=== PATIENT | male | born 1995 | race Caucasian/White ===

== ENCOUNTER 2019-05-08 01:17 | Observation (INO) | payer OTHER ==
[~2019-05-08] VITALS: Ht 170.2 cm; Wt 77.1 kg
[~2019-05-08 01:17] MED LIST: CODACEE120 PO
[2019-05-08 01:45] LABS: BASOPHILS ABSOLUTE AUTO 0.02 K/mm3 (0.00-0.23); BASOPHILS PERCENT AUTO 0 % (0-2); EOSINOPHILS ABSOLUTE AUTO 0.09 K/mm3 (0.00-0.68); EOSINOPHILS PERCENT AUTO 1 % (0-6); Hemoglobin 15.8 g/dL (13.5-17.5); IMMATURE GRAN ABSOLUTE AUTO 0.02 K/mm3 (0.00-0.10); IMMATURE GRAN PERCENT AUTO 0 % (0-1); LYMPHOCYTES ABSOLUTE AUTO 0.63 K/mm3 (0.84-5.20); LYMPHOCYTES PERCENT AUTO 6 % (21-46); MONOCYTES ABSOLUTE AUTO 0.76 K/mm3 (0.16-1.47); MONOCYTES PERCENT AUTO 8 % (4-13); Mean Corpuscular HGB 30.8 pg (26.0-34.0); Mean Corpuscular HGB Conc 34.3 g/dL (31.5-36.5); Mean Corpuscular Volume 90 fL (80-100); Mean Platelet Volume 9.4 fL (9.1-12.4); NEUTROPHILS ABSOLUTE AUTO 8.42 K/mm3 (1.96-9.15); NEUTROPHILS PERCENT AUTO 85 % (41-73); Platelet Count 271 K/mm3 (150-400); RDW Coefficient Variation 12.4 % (11.7-14.2); RDW Standard Deviation 40.8 fL (35.1-46.3); Red Blood Cell Count 5.13 M/mm3 (4.30-5.90); White Blood Cell Count 9.94 K/mm3 (4.00-11.30)
[2019-05-08 02:03] LABS: Alanine Aminotransfer (ALT/SGP 50 U/L (12-78); Albumin, Blood 4.6 g/dL (3.4-5.0); Albumin/Globulin Ratio 1.2 (0.8-1.8); Alk Phos 68 U/L (50-136); Anion Gap 5 mmol/L (6-16); Aspartate Aminotrans (AST/SGOT 27 U/L (12-37); Bilirubin, Total 0.6 mg/dL (0.1-1.0); Blood Urea Nitrogen 16 mg/dL (8-24); CO2, Blood 29 mmol/L (21-32); Calcium, Blood 8.8 mg/dL (8.5-10.1); Chloride, Blood 106 mmol/L (98-108); Creatinine, Blood 1.14 mg/dL (0.60-1.20); Globulin, Blood 3.7 g/dL (2.2-4.0); Glomerular Filtration Rate >60 (60-); Glucose, Blood 106 mg/dL (70-99); Potassium, Blood 3.7 mmol/L (3.5-5.5); Sodium, Blood 140 mmol/L (136-145); Total Protein, Blood 8.3 g/dL (6.4-8.2)
[2019-05-08 03:13] LABS: Source, Urine Clean Catch
[2019-05-08 03:15] LABS: Bilirubin, Urine Neg (Neg); Blood, Urine Neg (Neg); Glucose Qualitative, Urine Neg (Neg); Ketones, Urine 1+ (Neg); Leukocyte Esterase, Urine Neg (Neg); Nitrite, Urine Neg (Neg); Protein, Urine Neg (Neg); Urobilinogen, Urine NORM (Normal)
[2019-05-08 03:16] LABS: Appearance, Urine Clear (Clear); Color, Urine Yellow (P-Yellow)
--- NOTE | 2019-05-08 08:50 | NUR ---
Physician notified Dr. Desai notified of pt c/o nausea and no orders for nausea. Orders received (see EMAR).
[2019-05-08 09:36] LABS: BASOPHILS ABSOLUTE AUTO 0.01 K/mm3 (0.00-0.23); BASOPHILS PERCENT AUTO 0 % (0-2); EOSINOPHILS ABSOLUTE AUTO 0.01 K/mm3 (0.00-0.68); EOSINOPHILS PERCENT AUTO 0 % (0-6); Hematocrit 40.9 % (37.0-53.0); Hemoglobin 13.9 g/dL (13.5-17.5); IMMATURE GRAN ABSOLUTE AUTO 0.02 K/mm3 (0.00-0.10); IMMATURE GRAN PERCENT AUTO 0 % (0-1); LYMPHOCYTES ABSOLUTE AUTO 0.28 K/mm3 (0.84-5.20); LYMPHOCYTES PERCENT AUTO 4 % (21-46); MONOCYTES PERCENT AUTO 8 % (4-13); Mean Corpuscular HGB 30.8 pg (26.0-34.0); Mean Corpuscular Volume 91 fL (80-100); Mean Platelet Volume 9.4 fL (9.1-12.4); NEUTROPHILS ABSOLUTE AUTO 6.53 K/mm3 (1.96-9.15); NEUTROPHILS PERCENT AUTO 88 % (41-73); Platelet Count 220 K/mm3 (150-400); RDW Coefficient Variation 12.7 % (11.7-14.2); Red Blood Cell Count 4.52 M/mm3 (4.30-5.90); White Blood Cell Count 7.45 K/mm3 (4.00-11.30)
[2019-05-08 16:16] LABS: Campylobacter Sp Not Detected (NOT DETECT)
[2019-05-08 16:17] LABS: Adenovirus F 40/41 Not Detected (NOT DETECT); Astrovirus Not Detected (NOT DETECT); Cryptosporidium Not Detected (NOT DETECT); Cyclospora Cayetanensis Not Detected (NOT DETECT); E. Coli O157 Not Detected (NOT DETECT); Entamoeba Histolytica Not Detected (NOT DETECT); Enteroaggregative E. coli-EAEC Not Detected (NOT DETECT); Enteropathogenic E. coli-EPEC Not Detected (NOT DETECT); Enterotoxigenic E. coli-ETEC Not Detected (NOT DETECT); Giardia Lamblia Not Detected (NOT DETECT); Norovirus GI/GII Detected (NOT DETECT); Plesiomonas Shigelloides Not Detected (NOT DETECT); Rotavirus A Not Detected (NOT DETECT); Salmonella Sp Not Detected (NOT DETECT); Sapovirus Not Detected (NOT DETECT); Shiga Toxin-prod E. coli-STEC Not Detected (NOT DETECT); Shigella/Enteroin E. coli-EIEC Not Detected (NOT DETECT); Vibrio Cholerae Not Detected (NOT DETECT); Vibrio Sp Not Detected (NOT DETECT); Yersinia Enterocolitica Not Detected (NOT DETECT)
--- NOTE | 2019-05-08 17:27 | NUR ---
Physician notified Dr. Decker notified regarding GI panel results. No new orders.
[2019-05-08 17:50] LABS: Adenovirus Not Detected (NOT DETECT); Bordetella pertussis Not Detected (NOT DETECT); Chlamydophila pneumoniae Not Detected (NOT DETECT); Coronavirus 229E Not Detected (NOT DETECT); Coronavirus HKU1 Not Detected (NOT DETECT); Coronavirus NL63 Not Detected (NOT DETECT); Coronavirus OC43 Not Detected (NOT DETECT); Human Metapneumovirus Not Detected (NOT DETECT); Human Rhinovirus/Enterovirus Not Detected (NOT DETECT); Influenza A Not Detected (NOT DETECT); Influenza A/2009-H1 Not Detected (NOT DETECT); Influenza A/H1 Not Detected (NOT DETECT); Influenza A/H3 Not Detected (NOT DETECT); Influenza B Not Detected (NOT DETECT); Mycoplasma pneumoniae Not Detected (NOT DETECT); Parainfluenza Virus 1 Not Detected (NOT DETECT); Parainfluenza Virus 2 Not Detected (NOT DETECT); Parainfluenza Virus 3 Not Detected (NOT DETECT); Parainfluenza Virus 4 Not Detected (NOT DETECT); Respiratory Syncytial Virus Not Detected (NOT DETECT)
--- NOTE | 2019-05-08 17:50 | NUR ---
Received orders for Immodium (see EMAR) from Dr. Decker for diarrhea.
--- NOTE | 2019-05-08 18:24 | NUR ---
Shift Summary A/Ox4, independent, cooperative with care. GI panel and Resp. panel sent to lab, results received. Pt currently on enteric precautions for noro virus and c-diff. Pain is more manageable now compared to this morning is no longer guarding abdomen and up in room socializing with freinds and family. Medicated for pain x4 and nausea x2 with good results. Advanced diet to Full liquid, patient did not have an appetite. No other concerns.
[2019-05-09 04:48] LABS: BASOPHILS ABSOLUTE AUTO 0.01 K/mm3 (0.00-0.23); BASOPHILS PERCENT AUTO 0 % (0-2); EOSINOPHILS ABSOLUTE AUTO 0.13 K/mm3 (0.00-0.68); EOSINOPHILS PERCENT AUTO 3 % (0-6); Hematocrit 38.8 % (37.0-53.0); IMMATURE GRAN ABSOLUTE AUTO 0.01 K/mm3 (0.00-0.10); IMMATURE GRAN PERCENT AUTO 0 % (0-1); LYMPHOCYTES ABSOLUTE AUTO 1.44 K/mm3 (0.84-5.20); LYMPHOCYTES PERCENT AUTO 27 % (21-46); MONOCYTES ABSOLUTE AUTO 0.67 K/mm3 (0.16-1.47); MONOCYTES PERCENT AUTO 13 % (4-13); Mean Corpuscular HGB 30.4 pg (26.0-34.0); Mean Corpuscular HGB Conc 33.5 g/dL (31.5-36.5); Mean Corpuscular Volume 91 fL (80-100); Mean Platelet Volume 9.5 fL (9.1-12.4); NEUTROPHILS ABSOLUTE AUTO 3.04 K/mm3 (1.96-9.15); NEUTROPHILS PERCENT AUTO 57 % (41-73); Platelet Count 200 K/mm3 (150-400); RDW Coefficient Variation 12.7 % (11.7-14.2); RDW Standard Deviation 41.8 fL (35.1-46.3); Red Blood Cell Count 4.27 M/mm3 (4.30-5.90)
[2019-05-09 05:20] LABS: Alanine Aminotransfer (ALT/SGP 30 U/L (12-78); Albumin, Blood 3.1 g/dL (3.4-5.0); Albumin/Globulin Ratio 1.1 (0.8-1.8); Alk Phos 45 U/L (50-136); Anion Gap 4 mmol/L (6-16); Aspartate Aminotrans (AST/SGOT 16 U/L (12-37); Bilirubin, Total 0.3 mg/dL (0.1-1.0); Blood Urea Nitrogen 9 mg/dL (8-24); CO2, Blood 27 mmol/L (21-32); Calcium, Blood 7.5 mg/dL (8.5-10.1); Chloride, Blood 109 mmol/L (98-108); Creatinine, Blood 1.12 mg/dL (0.60-1.20); Globulin, Blood 2.9 g/dL (2.2-4.0); Glomerular Filtration Rate >60 (60-); Glucose, Blood 103 mg/dL (70-99); Potassium, Blood 3.4 mmol/L (3.5-5.5); Sodium, Blood 140 mmol/L (136-145)
--- NOTE | 2019-05-09 06:35 | NUR ---
SHIFT SUMMARY PT IS A 23 Y/O MALE, ADMITTED FOR ABD PAIN, POSITIVE FOR C-DIFF AND NORO. HE IS A&O X 4, AND INDEPENDENT IN THE ROOM. PT SLEPT WELL DURING THE NIGHT, AND DENIED ANY COMPLAINTS OF ABD PAIN OR N/V. VITAL SIGNS STABLE. PT RECEIVED NS @ 100 ML/HR THROUGH THE NIGHT. NO OTHER ACUTE CHANGES IN PT CONDITION NOTED. WILL CONTINUE TO MONITOR AND TREAT PER EMAR UNTIL HAND OFF TO DAY SHIFT RN.
--- NOTE | 2019-05-09 07:21 | NUR ---
pt reports THE PT REPORTS THAT HE IS FEELING MUCH BETTER THIS AM NO ABD PAIN NO N/V, WOULD LIKE TO ADVANCE TO A REGULAR DIET
[2019-05-09] MEDS ORDERED: Anti-Diarrheal2 MG PO (11:41)
[2019-05-09] MEDS ORDERED: POTCHL20ER PO (11:42)
--- NOTE | 2019-05-09 12:23 | NUR ---
PT DISCHARGED THE PT VERBALIZED UNDERSTANDING OF THE DC INSTRUCTIONS, PRESCRIPTIONS WERE FAXED TO [facility] REQUESTED, THE PT DENIED ANY N/V, OR ABD PAIN AT THE TIME OF DC, THE PT DECLINED WHEELCHAIR, THE PT APPEARED TO BE BREATHING EASILY ON RA, ACCOMPANIED BY FAMILY, KCL GIVEN BEFORE DC
== END 2019-05-09 12:07 | disposition home or self-care (01) ==
LOC: ER 01:17 → MEDS 01:18
PROVIDERS: Emergency Medicine; Internal Medicine; ADMIT Hospitalist
DX: A08.39 Other viral enteritis (principal); E86.0 Dehydration; E87.6 Hypokalemia; Z88.1 Allergy status to other antibiotic agents
CPT/HCPCS: 0097U; 0099U; 36415; 74177; 80053; 81003; 83605; 83690; 84145; 85025; 87324; 96361; 96365; 96366; 96367; 96374-59; 96375; 96375-59; 96376; 99285-25; G0378; J0696; J1170; J1885; J2405; J3010; J7030; Q9967

== ENCOUNTER 2025-04-13 08:58 | Day surgery (SDC) | payer BC ==
[~2025-04-13] VITALS: Ht 170.2 cm; Wt 89.7 kg
[~2025-04-13 08:58] MED LIST changes: +Anti-Diarrheal2 MG PO; +Lidocaine HCl 2% 10 ML SDA ONE; +POTCHL20ER PO
[2025-04-13] MEDS ORDERED: CeFAZolin Sodium 2,000 MG VIAL ONE (09:06)
[2025-04-13] MEDS ORDERED: FentaNYL Citrate 50 MCG/ML 2 ML Injection ONE (10:48)
--- NOTE | 2025-04-13 10:48 | NUR ---
04/13/25 [facility] [address]: DISCUSSED WITH CHAS VELAZCO THAT PATIENT WAS CHEWING GUM UPON ARRIVAL TO PRE-OP TODAY. PER JUAN A, OK TO PROCEED, NO NEW ORDERS.
[2025-04-13] MEDS ORDERED: Midazolam HCl 1MG / ML 2ML Vial ONE (10:49)
[2025-04-13] MEDS ORDERED: Dexamethasone Sod Phos 10 MG/ML 1ML VIAL ONE (10:54)
[2025-04-13] MEDS ORDERED: Ondansetron HCl 2 MG / ML 2ML Vial ONE (10:54)
[2025-04-13] MEDS ORDERED: Ketorolac Tromethamine 30mg Vial ONE (10:55)
[2025-04-13] MEDS ORDERED: Metoclopramide HCl 5MG / ML 2ML Vial ONE (12:05)
[2025-04-13 12:23] VITALS: BP 108/63
[2025-04-13] MEDS ORDERED: HYDROcodone 5-APAP 325 TAB ONE (12:50)
--- NOTE | 2025-04-13 13:14 | NUR ---
04/13/25 1314 Damien Bagley PT DOING WELL. PLEASE SEE DISCHARGE ASSESSMENT FOR DISCHARGE NOTE
== END 2025-04-13 13:04 | disposition home or self-care (01) ==
LOC: ORSCSDS 08:58
PROVIDERS: Orthopaedic Surgery
PROC: 0LS30ZZ Reposition Right Upper Arm Tendon, Open Approach (ICD-10-PCS; principal; 2025-04-13 10:15)
DX: M77.01 Medial epicondylitis, right elbow (principal); G47.33 Obstructive sleep apnea (adult) (pediatric)
CPT/HCPCS: A9270; C1713; J0690; J1100; J1885; J2003; J2250; J2405; J2704; J2765; J3010; J7120